=== PATIENT | female | born 2000 | race Hispanic/Latino ===

== ENCOUNTER → 2024-09-13 11:08 | Outpatient (REF) | payer OTHER, SELFPAY ==
[2024-09-14 19:47] LABS: Hepatitis B Surface Antibody Positive
[2024-09-15 17:37] LABS: Quantiferon Mitogen minus NIL 9.84 IU/mL; Quantiferon NIL 0.16 IU/mL; Quantiferon Plus TB1 minus NIL 0.02 IU/mL (<=0.34); Quantiferon Plus TB2 minus NIL 0.04 IU/mL (<=0.34); Quantiferon TB Gold Plus Negative (Negative)
== END ==
LOC: OHS 11:08
PROVIDERS: ATTENDING PHYSICIAN Nurse Practitioner Family
DX: Z23 Encounter for immunization (principal)
CPT/HCPCS: 36415; 86480; 86706